=== PATIENT | male | born 1955 | race Caucasian/White ===

== ENCOUNTER → 2017-09-22 | Outpatient (CLI) | payer OTHER | LOC: HYPER 09-19 11:22 | DX: L97.321 Non-pressure chronic ulcer of left ankle limited to breakdown of skin (principal); I10 Essential (primary) hypertension; L84 Corns and callosities; G62.9 Polyneuropathy, unspecified; G57.92 Unspecified mononeuropathy of left lower limb; G90.522 Complex regional pain syndrome I of left lower limb; Z87.891 Personal history of nicotine dependence ==

== ENCOUNTER → 2017-10-07 | Outpatient (CLI) | payer OTHER | LOC: HYPER 08:23 | DX: L97.321 Non-pressure chronic ulcer of left ankle limited to breakdown of skin (principal); L97.521 Non-pressure chronic ulcer of other part of left foot limited to breakdown of skin; I10 Essential (primary) hypertension; M51.36 Other intervertebral disc degeneration, lumbar region; G57.92 Unspecified mononeuropathy of left lower limb; G90.522 Complex regional pain syndrome I of left lower limb; L84 Corns and callosities; Z87.891 Personal history of nicotine dependence ==

== ENCOUNTER → 2017-10-20 | Outpatient (CLI) | payer OTHER | LOC: HYPER 06:49 | DX: L97.311 Non-pressure chronic ulcer of right ankle limited to breakdown of skin (principal); I10 Essential (primary) hypertension; L84 Corns and callosities; M51.36 Other intervertebral disc degeneration, lumbar region; G57.92 Unspecified mononeuropathy of left lower limb; G90.522 Complex regional pain syndrome I of left lower limb; Z87.891 Personal history of nicotine dependence ==

== ENCOUNTER → 2017-11-08 | Outpatient (CLI) | payer OTHER | LOC: HYPER 06:35 | DX: L97.321 Non-pressure chronic ulcer of left ankle limited to breakdown of skin (principal); L97.521 Non-pressure chronic ulcer of other part of left foot limited to breakdown of skin; L84 Corns and callosities; I10 Essential (primary) hypertension; M51.36 Other intervertebral disc degeneration, lumbar region; G57.03 Lesion of sciatic nerve, bilateral lower limbs; G89.21 Chronic pain due to trauma; Z87.891 Personal history of nicotine dependence ==